=== PATIENT | male | born 1950 | race Caucasian/White ===

== ENCOUNTER 2024-06-29 16:58 | Emergency (ER) | payer OTHER ==
[2024-06-29 18:03] LABS: Absolute Basophils 0.1 K/uL (0-0.5); Absolute Eosinophils 0.2 K/uL (0-0.5); Absolute Lymphocytes (CBC) 1.7 K/uL (0.7-4.9); Absolute Monocytes 1.2 K/uL (0.1-1.3); Absolute Neutrophil 4.7 K/uL (1.8-8.0); Basophils % 1.2 % (0-1.3); Eosinophils % 3.1 % (0-4.4); Hematocrit 44.6 % (39.6-49.0); Hemoglobin 14.9 g/dL (13.6-17.9); Lymphocytes % 21.5 % (15.3-44.8); MCH 30.3 pg (27.0-35.0); MCHC 33.5 g/dL (32.0-36.0); MCV 90.5 fL (80-100); MPV 9.6 fL (7.6-11.3); Monocytes % 15.2 % (3.3-12.3); Nucleated Red Blood Cells % 0.1 % (0-0); Platelets 191 thou/uL (152-406); RBC Red Blood Cell Count 4.93 M/uL (4.33-5.43); Red Cell Distribution Width 15.4 % (12.1-15.2)
[2024-06-29 18:08] LABS: PT Prothrombin Time 11.1 SECONDS (10.0-13.0); Protime INR 0.97
--- NOTE | 2024-06-29 18:19 | RAD REPORT ---
EXAM: Chest Single View HISTORY: 73 years Male CHEST PAIN COMPARISON: None. FINDINGS: LUNGS/PLEURA: The lungs are clear. No pleural effusions or pneumothorax. No pulmonary edema. CARDIAC/MEDIASTINUM: The cardiac silhouette is within normal limits. UPPER ABDOMEN: No significant abnormality. BONES: No acute abnormality. LINES/TUBES/OTHER: N/A IMPRESSION: No evidence of acute cardiopulmonary disease.
[2024-06-29 18:22] LABS: ALT/SGPT 25 U/L (16-61); AST/SGOT 25 U/L (15-37); Albumin 3.6 g/dL (3.4-5.0); Alkaline Phosphatase 60 U/L (45-117); Anion Gap 11.9 mEq/L (5.0-15.0); BUN Blood Urea Nitrogen 24 mg/dL (7-18); Bicarbonate 25 mEq/L (21-32); Bilirubin Total 0.4 mg/dL (0.2-1.0); Globulin 3.7 g/dL (2.3-3.5); Glomerular Filtration Rate 73 ml/min (=/>90); Glucose Level 118 mg/dL (74-106); NT PRO-BNP 214 pg/mL (<125); Potassium 3.9 mEq/L (3.5-5.1); Protein, Total 7.3 g/dL (6.4-8.2); Sodium Level 138 mEq/L (136-145); Troponin High Sensitivity 10.3 pg/mL (<58.9)
[2024-06-29 18:24] LABS: Bilirubin Direct < 0.2 mg/dL (0-0.2); Bilirubin Indirect, Calculated 0.2 mg/dL (0.2-0.8)
[2024-06-29] MEDS ORDERED: ASPIRIN 81 MG CHEWABLE TABLET ONE (18:58)
[2024-06-29] MEDS ORDERED: cloNIDine HCL 0.1 MG TAB ONE ×2 (19:17→21:30)
[2024-06-29] MEDS ORDERED: ACETAMINOPHEN 500 MG TAB ONE (20:02)
[2024-06-29] MEDS ORDERED: HYDRALAZINE HCL 20 MG/ML VIAL ONE (20:38)
--- NOTE | 2024-06-29 21:11 | ER ---
Nurse's Notes [facility] Name: Everett Harrell Age: 73 yrs Sex: Male : 1950 Arrival Date: 06/29/2024 Time: 16:58 Bed 16 Private MD: Diagnosis: Essential (primary) hypertension Presentation: 06/29 17:13 Chief complaint: Patient states: he has been having high blood pressure when he wakes ap3 up that he can typically get down with a walk and beat juice, and a shower. However today it didn't come down. patient also complains of chest discomfort. Coronavirus screen: At this time, the client does not indicate any symptoms associated with coronavirus-19. Ebola Screen: No symptoms or risks identified at this time. Initial Sepsis Screen: Does the patient meet any 2 criteria? No. Patient's initial sepsis screen is negative. Does the patient have a suspected source of infection? No. Patient's initial sepsis screen is negative. Risk Assessment: Do you want to hurt yourself or someone else? Patient reports no desire to harm self or others. Onset of symptoms was June 08, 2024. 17:13 Method Of Arrival: Ambulatory ap3 17:13 Acuity: SAMMI 2 ap3 Triage Assessment: 17:16 Headache History: The patient has had previous headaches. General: Appears in no ap3 apparent distress. Behavior is calm, cooperative, appropriate for age. Pain: Complains of pain in chest Pain currently is 5 out of 10 on a pain scale. Pain began gradually, Also complains of nausea. Neuro: Level of Consciousness is awake, alert, obeys commands, Oriented to person, place, time, situation, Appropriate for age Reports headache. Cardiovascular: Patient's skin is warm and dry. Respiratory: Airway is patent Respiratory effort is even, unlabored, Respiratory pattern is regular, symmetrical. Historical: - Allergies: 17:15 No Known Allergies; ap3 - PMHx: 17:15 Hypertensive disorder; Hypothyroidism; ap3 17:15 throat cancer 2016; ap3 - Immunization history:: Adult Immunizations up to date. - Infectious Disease History:: Denies. - Social history:: Smoking status: Patient denies any tobacco usage or history of. Screenin:16 Abuse screen: Denies threats or abuse. Nutritional screening: No deficits noted. ap3 Tuberculosis screening: No symptoms or risk factors identified. 19:00 [facility] ED Fall Risk Assessment (Adult) History of falling in the last 3 months, rg5 including since admission No falls in past 3 months (0 pts) Confusion or Disorientation No (0 pts) Intoxicated or Sedated No (0 pts) Impaired Gait No (0 pts) Mobility Assist Device Used No (0 pt) Altered Elimination No (0 pt) Score/Fall Risk Level 0 - 2 = Low Risk Oriented to surroundings, Maintained a safe environment, Hourly rounding (assess needs \T\ fall precautionary measures) done. Assessment: 18:11 Reassessment: No changes from previously documented assessment. Patient and/or family hb updated on plan of care and expected duration. Pain level reassessed. 19:00 General: Appears in no apparent distress. comfortable, Behavior is calm, cooperative, rg5 appropriate for age. 19:00 Pain: Complains of pain in head. Neuro: Level of Consciousness is awake, alert, obeys rg5 commands, Oriented to person, place, time. Cardiovascular: Patient's skin is warm and dry. Respiratory: Airway is patent Trachea midline Respiratory effort is even, unlabored, Respiratory pattern is regular, symmetrical. GI: No signs and/or symptoms were reported involving the gastrointestinal system. : No signs and/or symptoms were reported regarding the genitourinary system. EENT: No deficits noted. Derm: Skin is intact, Skin is dry, Skin is normal. Musculoskeletal: Circulation, motion, and sensation intact. Range of motion: intact in all extremities. Vital Signs: 17:13 BP 214 / 112; Pulse 77; Resp 18; Temp 98.7; Pulse Ox 100% ; Weight 104.33 kg; Height 5 ap3 ft. 9 in. ; Pain 5/10; 18:10 BP 178 / 103; Pulse 66; hb 18:55 BP 145 / 89; Pulse 62; Resp 15; Pulse Ox 98% ; cm10 19:10 BP 175 / 97; Pulse 59; Resp 18; Pulse Ox 96% on R/A; Pain 6/10; rg5 20:05 BP 177 / 89; Pulse 59; Resp 17; Pulse Ox 98% on R/A; Pain 6/10; rg5 20:57 BP 136 / 89; Pulse 65; Resp 18; Pulse Ox 97% on R/A; Pain 3/10; rg5 17:13 Body Mass Index 33.96 (104.33 kg, 175.26 cm) ap3 17:13 Pain Scale: Adult ap3 19:10 Pain Scale: Adult rg5 20:05 Pain Scale: Adult rg5 20:57 Pain Scale: Adult rg5 ED Course: 16:59 Patient arrived in ED. im 17:02 Jammie Salazar PA-C is PHCP. sb4 17:02 Leo Richardson MD is Attending Physician. sb4 17:09 EKG done, by ED staff, reviewed by Jammie Salazar PA-C. ap3 17:15 Triage completed. ap3 17:17 Arm band placed on right wrist. ap3 17:57 Initial lab(s) drawn, by me, sent to lab. Missed attempt(s): 22 gauge in right hb antecubital area. Bleeding controlled, band aid applied, catheter tip intact. 18:10 Patient placed in an exam room, on a stretcher. hb 18:12 XRAY Chest (1 view) In Process Unspecified. EDMS 19:00 No provider procedures requiring assistance completed. Inserted saline lock: 20 gauge rg5 in left antecubital area, using aseptic technique. Blood collected. Flushed with 10 mL NS. 19:00 Patient has correct armband on for positive identification. Bed in low position. Call rg5 light in reach. Side rails up X 1. Provided Education on:. Door closed. Noise minimized. Warm blanket given. Verbal reassurance given. 19:12 Ralph Dobbs RN is Primary Nurse. rg5 21:11 Wong Barry MD is Referral Physician. sb4 21:30 IV discontinued, bleeding controlled, No redness/swelling at site. Pressure dressing rg5 applied. Administered Medications: 19:07 Drug: Aspirin PO Chewable Tablet 324 mg PO once; 81 mg tablets x 4 Route: PO; cm10 21:11 Follow up: Response: No adverse reaction rg5 19:21 Drug: cloNIDine PO 0.1 mg PO once Route: PO; rg5 21:10 Follow up: Response: No adverse reaction; Temperature is decreased rg5 20:09 Drug: Acetaminophen PO 1000 mg PO once Route: PO; rg5 21:10 Follow up: Response: No adverse reaction; Pain is decreased rg5 20:40 Drug: hydrALAZINE IVP 5 mg IVP once Route: IVP; Site: left antecubital; rg5 21:11 Follow up: Response: Blood pressure is lowered rg5 21:15 Drug: cloNIDine PO 0.1 mg PO once Route: PO; rg5 21:32 Follow up: Response: No adverse reaction; Blood pressure is lowered rg5 Medication: 19:00 VIS not applicable for this client. rg5 Outcome: 21:11 Discharge ordered by . sb4 21:25 Discharged to home ambulatory, rg5 21:25 Condition: stable 21:25 Instructed on discharge instructions, Demonstrated understanding of instructions, follow-up care, medications, Prescriptions given X 1, 21:33 Patient left the ED. rg5 Signatures: Dispatcher [employer] EDMS Zoe Wang RN RN Savita Maravilla RN RN [id number] Jammie Salazar PA-C PABogdan sb4 Candi Caballero Clarissa RN RN cm10 Ralph Dobbs RN RN rg5
--- NOTE | 2024-06-29 21:11 | EDPHYS ---
Physician Documentation [facility] Name: Everett Harrell Age: 73 yrs Sex: Male : 1950 Arrival Date: 06/29/2024 Time: 16:58 Bed 16 Private MD: ED Physician Leo Richardson HPI: 06/29 17:22 This 73 yrs old Male presents to ER via Ambulatory with complaints of High Blood sb4 Pressure, Headache, Chest Pressure. 17:22 Patient states that he was diagnosed with high blood pressure at the OR about 3 weeks sb4 ago. States that he was prescribed lisinopril 10 mg daily. He was taking as prescribed for a few days but his blood pressure was rising and dropping erratically. They changed it to 5 mg twice a day instead and he states that that also did not improve his erratic blood pressure readings. States that today it jumped up to 220 systolic and he started to feel headache and some chest discomfort so he came to the ED. He denies any cardiac history. Historical: - Allergies: 17:15 No Known Allergies; ap3 - PMHx: 17:15 Hypertensive disorder; Hypothyroidism; ap3 17:15 throat cancer 2016; ap3 - Immunization history:: Adult Immunizations up to date. - Infectious Disease History:: Denies. - Social history:: Smoking status: Patient denies any tobacco usage or history of. ROS: 17:22 Constitutional: Negative for fever, chills, and weight loss, sb4 17:22 Cardiovascular: Positive for Chest discomfort, 17:22 Neuro: Positive for headache, 17:22 All other systems are negative, Exam: 17:22 Head/Face: Normocephalic, atraumatic. Eyes: Extra-ocular motions intact. Periorbital sb4 areas with no swelling, redness, or edema. ENT: Mucous membranes moist. Cardiovascular: Regular rate and rhythm with a normal S1 and S2. Respiratory: No increased work of breathing, no retractions or nasal flaring. Abdomen/GI: Soft, non-tender, no distension. MS/ Extremity: Pulses equal, no cyanosis. Neurovascular intact. Full, normal range of motion. Neuro: Awake and alert, GCS 15, oriented to person, place, time, and situation. Motor strength 5/5 in all extremities. Sensory grossly intact. 17:22 Constitutional: The patient appears in no acute distress, alert, awake, 17:22 Skin: Appearance: flushing, noted on the face, Vital Signs: 17:13 BP 214 / 112; Pulse 77; Resp 18; Temp 98.7; Pulse Ox 100% ; Weight 104.33 kg; Height 5 ap3 ft. 9 in. ; Pain 5/10; 18:10 BP 178 / 103; Pulse 66; hb 18:55 BP 145 / 89; Pulse 62; Resp 15; Pulse Ox 98% ; cm10 19:10 BP 175 / 97; Pulse 59; Resp 18; Pulse Ox 96% on R/A; Pain 6/10; rg5 20:05 BP 177 / 89; Pulse 59; Resp 17; Pulse Ox 98% on R/A; Pain 6/10; rg5 20:57 BP 136 / 89; Pulse 65; Resp 18; Pulse Ox 97% on R/A; Pain 3/10; rg5 17:13 Body Mass Index 33.96 (104.33 kg, 175.26 cm) ap3 17:13 Pain Scale: Adult ap3 19:10 Pain Scale: Adult rg5 20:05 Pain Scale: Adult rg5 20:57 Pain Scale: Adult rg5 MDM: 17:04 Medical Screening Exam initiated sb4 18:43 Data interpreted: electronic device monitor: rate is 66 beats/min, rhythm is normal sinus rhythm. sb4 Data reviewed: vital signs, nurses notes, lab test result(s), EKG, radiologic studies. Consideration of Admission/Observation Escalation of care including admission/observation considered. Historians other than the Patient: Spouse/Significant Other: . Scoring Tools HEART Score: History: ECG: Age: Risk Factors: 1 or 2 risk factors (1), Troponin: Total Score = 3. Counseling: I had a detailed discussion with the patient and/or guardian regarding the historical points, exam findings, and any diagnostic results supporting the discharge/admit diagnosis, the presence of at least one elevated blood pressure reading (>120/80) during this emergency department visit, lab results, radiology results, the need for outpatient follow up, a snag grinder, to return to the emergency department if symptoms worsen or persist or if there are any questions or concerns that arise at home. 06/29 17:18 Order name: Basic Metabolic Panel; Complete Time: 18:28 sb4 06/29 17:18 Order name: CBC with Diff; Complete Time: 18:10 sb4 06/29 17:18 Order name: LFT's; Complete Time: 18:28 sb4 06/29 17:18 Order name: Magnesium; Complete Time: 18:28 sb4 06/29 17:18 Order name: NT PRO-BNP; Complete Time: 18:28 sb4 06/29 17:18 Order name: PT-INR; Complete Time: 18:10 sb4 06/29 17:18 Order name: Troponin HS; Complete Time: 18:28 sb4 06/29 19:41 Order name: Troponin High Sensitivity; Complete Time: 20:20 sb4 06/29 17:18 Order name: XRAY Chest (1 view); Complete Time: 18:20 sb4 06/29 17:18 Order name: Cardiac monitoring; Complete Time: 18:55 sb4 06/29 17:18 Order name: EKG - Nurse/Tech; Complete Time: 17:25 sb4 06/29 17:18 Order name: IV Saline Lock; Complete Time: 19:12 sb4 06/29 17:18 Order name: Labs collected and sent; Complete Time: 17:56 sb4 06/29 17:18 Order name: O2 Per Protocol; Complete Time: 18:55 sb4 06/29 17:18 Order name: O2 Sat Monitoring; Complete Time: 18:55 sb4 EC:10 Rate is 70 beats/min. Rhythm is regular, Normal Sinus Rhythm. CO interval is normal at sb4 200 msec. QRS interval is normal at 102 msec. QT interval is normal at 412 msec. No Q waves. T waves are Normal. No ST changes noted. Clinical impression: No evidence of ischemia. Interpreted by me. Reviewed by me. Administered Medications: 19:07 Drug: Aspirin PO Chewable Tablet 324 mg PO once; 81 mg tablets x 4 Route: PO; cm10 21:11 Follow up: Response: No adverse reaction rg5 19:21 Drug: cloNIDine PO 0.1 mg PO once Route: PO; rg5 21:10 Follow up: Response: No adverse reaction; Temperature is decreased rg5 20:09 Drug: Acetaminophen PO 1000 mg PO once Route: PO; rg5 21:10 Follow up: Response: No adverse reaction; Pain is decreased rg5 20:40 Drug: hydrALAZINE IVP 5 mg IVP once Route: IVP; Site: left antecubital; rg5 21:11 Follow up: Response: Blood pressure is lowered rg5 21:15 Drug: cloNIDine PO 0.1 mg PO once Route: PO; rg5 21:32 Follow up: Response: No adverse reaction; Blood pressure is lowered rg5 Disposition Summary: 06/29/24 21:11 Discharge Ordered Notes: Location: Home sb4 Problem: new sb4 Symptoms: have improved sb4 Condition: Stable sb4 Diagnosis - Essential (primary) hypertension sb4 Followup: sb4 - With: Wong Barry MD - When: As needed - Reason: Recheck today's complaints, Re-evaluation by your physician Discharge Instructions: - Discharge Summary Sheet sb4 - Hypertension, Adult sb4 Forms: - Medication Reconciliation Form sb4 - Antibiotic Education sb4 - Prescription Opioid Use sb4 - Patient Portal Instructions sb4 - Leadership Thank You Letter sb4 Prescriptions: - clonidine HCl 0.1 mg Oral tablet - take 1 tablet ORAL route every 1 to 2 hours as needed for hypertensive sb4 emergency; do not exceed 8 doses in a 24 hour period; 15 tablet; Refills: 0, Product Selection Permitted Signatures: Dispatcher [employer] EDMS Savita Maldonado RN RN ap3 Jammie Salazar PABogdan PA-C sb4 Angie Falcon, RN RN cm10 Ralph Dobbs, RN RN rg5 Corrections: (The following items were deleted from the chart) 17:19 17:19 Chest Single View+RAD.RAD.BRZ ordered. EDMS EDMS
[2024-06-29 21:53] VITALS: TEMP 98.7
[2024-06-29 22:13] VITALS: BP 136/89; O2SAT 97
--- NOTE | 2024-07-03 11:15 | EKG ---
Test Date: 2024-06-29 Test Time: 17:08:32 Mechanical Insulator: ALP MEASUREMENT RESULTS: Intervals: Rate: 70 IN: 200 QRSD: 102 QT: 412 QTc: 444 [place]: P: 55 IN: 200 QRS: -7 T: 38 INTERPRETIVE STATEMENTS: Normal sinus rhythm Voltage criteria for left ventricular hypertrophy Abnormal ECG No previous ECG available for comparison Electronically Signed On 07-03-24 11:03:58 CDT by Edgard Cagle
== END 2024-06-29 21:33 | disposition home or self-care (01) ==
LOC: ER 16:58
DX: I10 Essential (primary) hypertension (principal)
CPT/HCPCS: 93005; 85025; 80048; 36415; 83735; 85610; 80076; 84484 ×2; 83880; 71045; 96374; 99284; J0360

== ENCOUNTER 2024-07-02 11:50 | Emergency (ER) | payer OTHER ==
[2024-07-02] MEDS ORDERED: NA CHLORIDE 0.9% 500 ML ONE (12:46)
[2024-07-02 12:53] LABS: Absolute Basophils 0.1 K/uL (0-0.5); Absolute Eosinophils 0.2 K/uL (0-0.5); Absolute Lymphocytes (CBC) 1.5 K/uL (0.7-4.9); Absolute Monocytes 0.9 K/uL (0.1-1.3); Basophils % 1.1 % (0-1.3); Eosinophils % 2.7 % (0-4.4); Hematocrit 43.5 % (39.6-49.0); Hemoglobin 14.6 g/dL (13.6-17.9); Lymphocytes % 17.7 % (15.3-44.8); MCH 30.3 pg (27.0-35.0); MCHC 33.5 g/dL (32.0-36.0); MCV 90.6 fL (80-100); MPV 10.3 fL (7.6-11.3); Monocytes % 10.2 % (3.3-12.3); Neutrophils % 68.3 % (41.7-73.7); Nucleated Red Blood Cells % 0.3 % (0-0); Platelets 213 thou/uL (152-406); Red Cell Distribution Width 15.5 % (12.1-15.2)
[2024-07-02 13:02] LABS: PT Prothrombin Time 11.1 SECONDS (10-13.0); Protime INR 0.97
[2024-07-02 13:10] LABS: Albumin 3.4 g/dL (3.4-5.0); Anion Gap 10.9 mEq/L (5.0-15.0); Bilirubin Direct 0.2 mg/dL (0-0.2); Bilirubin Indirect, Calculated 0.4 mg/dL (0.2-0.8); Bilirubin Total 0.6 mg/dL (0.2-1.0); Globulin 3.5 g/dL (2.3-3.5); Magnesium 2.1 mg/dL (1.6-2.4); Potassium 3.9 mEq/L (3.5-5.1); Protein, Total 6.9 g/dL (6.4-8.2); Troponin High Sensitivity 7.5 pg/mL (<58.9)
[2024-07-02 13:40] LABS: Specific Gravity 1.005 (1.005-1.030); Sqamous Epithelial None Seen /HPF (None Seen); Urine Bacteria <20 /HPF (<20); Urine Bilirubin NEGATIVE (Negative); Urine Blood Negative (Negative); Urine Clarity Clear (Clear); Urine Color Colorless (Yellow); Urine Culture Reflex Order NOT NEEDED; Urine Glucose NEGATIVE (Negative); Urine Ketones NEGATIVE (Negative); Urine Micro Reflex YN NO BILL MICROSCOPIC; Urine Nitrite NEGATIVE (Negative); Urine Protein NEGATIVE (Negative); Urine RBC <5 /HPF (None Seen); Urine Urobilinogen Normal (Normal); Urine WBC <5 /HPF (<5); Urine pH 6.5 (5.0-7.0)
--- NOTE | 2024-07-02 13:46 | RAD REPORT ---
Procedure: Chest Single View HISTORY: Bradycardia and weakness COMPARISON: June 29, 2024 FINDINGS: The lungs appear clear of acute infiltrate. No significant pleural effusion noted. The heart is normal size. IMPRESSION: No acute abnormality is displayed.
--- NOTE | 2024-07-02 15:22 | EDPHYS ---
Physician Documentation [facility] Name: Everett Harrell Age: 73 yrs Sex: Male : 1950 Arrival Date: 07/02/2024 Time: 11:50 Bed 2 Private MD: ED Physician Jey Mcclelland HPI: 07/02 12:35 This 73 yrs old Male presents to ER via Wheelchair with complaints of Low heart rate. cp 12:35 Patient is a 73 y/o male who was sent to ED from local NH clinic for reported low HR in cp the 40s. Patient reports recent diagnosis of htn. Took prescribed clonidine medication for elevated blood pressure and after taking second dose of 0.1 mg clonidine, blood pressure became low and patient went to NH clinic. At [facility], HR was found to be in 40's. Patient c/o general weakness. Historical: - Allergies: 12:26 No Known Allergies; hb - PMHx: 12:26 Hypertensive disorder; Hypothyroidism; throat cancer 2016; hb - Immunization history:: Adult Immunizations up to date. - Infectious Disease History:: Denies. - Social history:: Smoking status: Patient denies any tobacco usage or history of. ROS: 12:40 Constitutional: Negative for body aches, chills, fever, poor PO intake, cp 12:40 Eyes: Positive for redness, of the outer aspect of conjuctiva of left eye, Negative for cp discharge, pain, injury, 12:40 ENT: Negative for drainage from ear(s), ear pain, sore throat, difficulty swallowing, difficulty handling secretions, 12:40 Cardiovascular: Negative for chest pain, edema, 12:40 Respiratory: Negative for cough, shortness of breath, wheezing, 12:40 Abdomen/GI: Negative for abdominal pain, vomiting, diarrhea, constipation, 12:40 : Negative for urinary symptoms, testicular pain 12:40 Neuro: Positive for near syncope, weakness, Negative for altered mental status, headache, syncope, 12:40 All other systems are negative, Exam: 12:45 Constitutional: The patient appears in no acute distress, alert, awake, cp non-diaphoretic, non-toxic, well developed, well nourished, 12:45 Head/Face: Normocephalic, atraumatic. cp 12:45 Eyes: Periorbital structures: appear normal, Pupils: equal, round, and reactive to light and accomodation, Extraocular movements: intact throughout, Conjunctiva: subconjunctival hemorrhage(s), seen in the left eye, lateral aspect, Lids and lashes: appear normal, bilaterally, 12:45 ENT: External ear(s): are unremarkable, Nose: is normal, Mouth: Lips: moist, Oral mucosa: moist, Posterior pharynx: Airway: no evidence of obstruction, patent, 12:45 Neck: ROM/movement: is normal, is supple, without pain, no range of motions limitations, 12:45 Chest/axilla: Inspection: normal, Palpation: is normal, no crepitus, no tenderness, 12:45 Cardiovascular: Rate: bradycardic, Rhythm: regular, Edema: is not appreciated, JVD: is not appreciated, 12:45 Respiratory: the patient does not display signs of respiratory distress, Respirations: normal, no use of accessory muscles, no retractions, labored breathing, is not present, Breath sounds: are clear throughout, no decreased breath sounds, no stridor, no wheezing, 12:45 Abdomen/GI: Inspection: abdomen appears normal, Palpation: abdomen is soft and non-tender, in all quadrants, 12:45 Back: pain, is absent, ROM is normal, 12:45 Skin: no rash present. 12:45 Neuro: Orientation: to person, place \T\ time. Mentation: is normal, Motor: moves all fours, strength is normal, Sensation: is normal, Vital Signs: 12:23 BP 102 / 59; Pulse 42; Resp 20; Temp 97.8; Pulse Ox 100% on R/A; Pain 0/10; hb 13:32 BP 131 / 76; Pulse 43; Resp 18; Pulse Ox 100% ; ll1 14:00 BP 139 / 72; Pulse 46; Resp 18; Pulse Ox 98% ; me1 15:09 BP 175 / 77; Pulse 48; Resp 14; Pulse Ox 99% on R/A; ss 15:55 BP 196 / 93; Pulse 52; ss 16:01 BP 177 / 74; Pulse 55; Resp 17; ss 17:10 BP 149 / 81; Pulse 69; Resp 18; Pulse Ox 100% on R/A; ss 17:39 BP 135 / 72; Pulse 72; Resp 18; Pulse Ox 100% on R/A; ll1 18:18 BP 112 / 68; Pulse 73; Resp 18; Pulse Ox 96% on R/A; ll1 12:23 Pain Scale: Adult hb MDM: 12:16 Medical Screening Exam initiated 15:25 Data reviewed: vital signs, nurses notes, lab test result(s), EKG, radiologic studies, cp plain films. 15:25 I considered the following discharge prescriptions or medication management in the emergency department Medications were administered in the Emergency Department. See MAR. Care significantly affected by the following chronic conditions: Hypertension. Counseling: I had a detailed discussion with the patient and/or guardian regarding the historical points, exam findings, and any diagnostic results supporting the discharge/admit diagnosis, lab results, radiology results, the need to transfer to another facility, request by patient for NH services. Response to treatment: the patient's symptoms have markedly improved after treatment. 07/02 12:31 Order name: Basic Metabolic Panel; Complete Time: 13:37 07/02 13:37 Interpretation: Normal except: NA 134; GLUC 114; BUN 19; GFR 86. 07/02 12:31 Order name: CBC with Diff; Complete Time: 13:37 cp 07/02 13:37 Interpretation: Normal except: RDW 15.5. cp 07/02 12:31 Order name: LFT's; Complete Time: 13:37 cp 07/02 12:31 Order name: Magnesium; Complete Time: 13:37 cp 07/02 12:31 Order name: NT PRO-BNP; Complete Time: 13:37 cp 07/02 12:31 Order name: PT-INR; Complete Time: 13:37 cp 07/02 12:31 Order name: Troponin HS; Complete Time: 13:37 cp 07/02 12:31 Order name: Urinalysis W/Microscopic; Complete Time: 14:25 cp 07/02 12:31 Order name: XRAY Chest (1 view); Complete Time: 14:25 cp 07/02 12:31 Order name: Cardiac monitoring; Complete Time: 13:10 cp 07/02 12:31 Order name: EKG - Nurse/Tech; Complete Time: 13:10 cp 07/02 12:31 Order name: IV Saline Lock; Complete Time: 12:42 cp 07/02 12:31 Order name: Labs collected and sent; Complete Time: 12:42 cp 07/02 12:31 Order name: O2 Per Protocol; Complete Time: 12:35 cp 07/02 12:31 Order name: O2 Sat Monitoring; Complete Time: 12:35 cp Administered Medications: 13:10 Drug: NS 0.9% IV 500 ml 500 ml IV at 1 bolus once; to be given as a bolus over 60 ll1 minutes Volume: 500 ml; Route: IV; Rate: 1 bolus; Site: left antecubital; 16:52 Follow up: Response: No adverse reaction; IV Status: Completed infusion; IV Intake: ss 500ml 16:00 Drug: hydrALAZINE IVP 10 mg IVP once Route: IVP; Site: left antecubital; ss 16:52 Follow up: Response: No adverse reaction ss 16:37 Drug: diphenhydrAMINE IVP 50 mg IVP once Route: IVP; Site: left antecubital; ss 17:02 Follow up: Response: No adverse reaction ss 16:37 Drug: MethylPrednisoLONE IVP 125 mg IVP once Route: IVP; Site: left antecubital; ss 17:02 Follow up: Response: No adverse reaction ss 16:52 Drug: DuoNeb Nebulize (2.5 mg - 0.5 mg) 3 ml Nebulizer once Route: Nebulizer; ss 17:02 Follow up: Response: No adverse reaction ss 16:52 Drug: Famotidine IVP 20 mg IVP once; dilute with 10 mL 0.9% NaCl; give over 2 minutes ss Route: IVP; Site: left antecubital; 17:02 Follow up: Response: No adverse reaction ss Disposition: 07/03 15:45 Chart complete. cp 16:28 Co-signature as Attending Physician, Jey Mcclelland MD I reviewed the patient's care rn provided by the Advanced Practice Provider and agree with the diagnosis and treatment plan. Disposition Summary: 07/02/24 15:22 Transfer Ordered Notes: Transfer Location: [facility] cp Reason: Higher level of care cp Condition: Stable cp Problem: new cp Symptoms: have improved cp Accepting Physician: doctor(07/02/24 18:49) ll1 Diagnosis - Bradycardia, unspecified cp Forms: - Medication Reconciliation Form cp - SBAR form cp Signatures: Dispatcher [employer] EDJey Levine MD MD rn Blanchard, Shelby, RN RN Leo Mcguire PA PA Zoe Muhammad RN RN Senthil Maldonado RN RN ll1 Corrections: (The following items were deleted from the chart) 07/02 12:32 12:32 BASIC METABOLIC PANEL+C.LAB.BRZ ordered. EDMS EDMS 12:32 12:32 CBC+H.LAB.BRZ ordered. EDMS EDMS 12:32 12:32 HEPATIC FUNCTION+C.LAB.BRZ ordered. EDMS EDMS 12:32 12:32 MAGNESIUM+C.LAB.BRZ ordered. EDMS EDMS 12:32 12:32 PROBNP+C.LAB.BRZ ordered. EDMS EDMS 12:32 12:32 PROTIME (+INR)+COAG.LAB.BRZ ordered. EDMS EDMS 12:32 12:32 Troponin High Sensitivity+C.LAB.BRZ ordered. EDMS EDMS 12:32 12:32 Urinalysis W/Microscopic+U.LAB.BRZ ordered. EDMS EDMS 12:32 12:32 Chest Single View+RAD.RAD.BRZ ordered. EDMS EDMS 18:49 15:22 doctor cp ll1
--- NOTE | 2024-07-02 15:22 | ER ---
Nurse's Notes [facility] Name: Everett Harrell Age: 73 yrs Sex: Male : 1950 Arrival Date: 07/02/2024 Time: 11:50 Bed 2 Private MD: Diagnosis: Bradycardia, unspecified Presentation: 07/02 12:23 Chief complaint: Sent from [place] clinic for HR 40s, c/o dizziness and generalized hb weakness. Coronavirus screen: At this time, the client does not indicate any symptoms associated with coronavirus-19. Ebola Screen: No symptoms or risks identified at this time. Initial Sepsis Screen: Does the patient meet any 2 criteria? No. Patient's initial sepsis screen is negative. Does the patient have a suspected source of infection? No. Patient's initial sepsis screen is negative. Risk Assessment: Do you want to hurt yourself or someone else? Patient reports no desire to harm self or others. Onset of symptoms was July 02, 2024. 12:23 Method Of Arrival: Wheelchair hb 12:27 Acuity: SAMMI 2 hb Historical: - Allergies: 12:26 No Known Allergies; hb - PMHx: 12:26 Hypertensive disorder; Hypothyroidism; throat cancer 2016; hb - Immunization history:: Adult Immunizations up to date. - Infectious Disease History:: Denies. - Social history:: Smoking status: Patient denies any tobacco usage or history of. Screenin:33 [facility] ED Fall Risk Assessment (Adult) History of falling in the last 3 months, ll1 including since admission No falls in past 3 months (0 pts) Confusion or Disorientation No (0 pts) Intoxicated or Sedated No (0 pts) Impaired Gait Yes (1 pt) Mobility Assist Device Used Yes (1 pt) Altered Elimination Yes (1 pt) Score/Fall Risk Level 3 or more points = High Risk Maintained a safe environment, Hourly rounding (assess needs \T\ fall precautionary measures) done. Abuse screen: Denies threats or abuse. Nutritional screening: No deficits noted. Tuberculosis screening: No symptoms or risk factors identified. Assessment: 12:55 General: Appears in no apparent distress. Behavior is calm, cooperative, appropriate ll1 for age, Reports fatigue for. Pain: Denies pain. Neuro: Reports weakness BP fluctuations and HR fluctuations.. 13:30 Reassessment: No changes from previously documented assessment. Patient and/or family ss updated on plan of care and expected duration. Pain level reassessed. 15:09 Reassessment: No changes from previously documented assessment. Cory TOLENTINO at . ss 17:55 Reassessment: No changes from previously documented assessment. Patient and/or family ll1 updated on plan of care and expected duration. Pain level reassessed. Patient is alert, oriented x 3, equal unlabored respirations, skin warm/dry/pink. Vital Signs: 12:23 BP 102 / 59; Pulse 42; Resp 20; Temp 97.8; Pulse Ox 100% on R/A; Pain 0/10; hb 13:32 BP 131 / 76; Pulse 43; Resp 18; Pulse Ox 100% ; ll1 14:00 BP 139 / 72; Pulse 46; Resp 18; Pulse Ox 98% ; me1 15:09 BP 175 / 77; Pulse 48; Resp 14; Pulse Ox 99% on R/A; ss 15:55 BP 196 / 93; Pulse 52; ss 16:01 BP 177 / 74; Pulse 55; Resp 17; ss 17:10 BP 149 / 81; Pulse 69; Resp 18; Pulse Ox 100% on R/A; ss 17:39 BP 135 / 72; Pulse 72; Resp 18; Pulse Ox 100% on R/A; ll1 18:18 BP 112 / 68; Pulse 73; Resp 18; Pulse Ox 96% on R/A; ll1 12:23 Pain Scale: Adult hb ED Course: 11:52 Patient arrived in ED. mr 11:53 Leo Kowalski PA is PHCP. cp 11:53 Jey Mcclelland MD is Attending Physician. cp 12:27 Triage completed. hb 12:27 Arm band placed on. hb 12:55 Provided Education on: ER procedures and process. Client placed on continuous cardiac ll1 and pulse oximetry monitoring. NIBP monitoring applied. vocational rehabilitation supervisor on. 12:55 Initial lab(s) drawn, by me, sent to lab. ll1 13:01 Senthil Maldonado, MICAELA is Primary Nurse. ll1 13:11 Missed attempt(s): 22 gauge in right antecubital area. Bleeding controlled, band aid ll1 applied, catheter tip intact. 13:13 Inserted saline lock: 22 gauge in left forearm, using aseptic technique. Flushed with zm 10 mL NS. 13:15 XRAY Chest (1 view) In Process Unspecified. EDMS 13:32 Urinalysis W/Microscopic Sent. ll1 13:33 Patient has correct armband on for positive identification. Bed in low position. ll1 15:23 initiated transfer to [facility], faxed chart to [place] ER as requested by transfer center.bd 17:50 No provider procedures requiring assistance completed. Patient transferred, IV remains ll1 in place. Administered Medications: 13:10 Drug: NS 0.9% IV 500 ml 500 ml IV at 1 bolus once; to be given as a bolus over 60 ll1 minutes Volume: 500 ml; Route: IV; Rate: 1 bolus; Site: left antecubital; 16:52 Follow up: Response: No adverse reaction; IV Status: Completed infusion; IV Intake: ss 500ml 16:00 Drug: hydrALAZINE IVP 10 mg IVP once Route: IVP; Site: left antecubital; ss 16:52 Follow up: Response: No adverse reaction ss 16:37 Drug: diphenhydrAMINE IVP 50 mg IVP once Route: IVP; Site: left antecubital; ss 17:02 Follow up: Response: No adverse reaction ss 16:37 Drug: MethylPrednisoLONE IVP 125 mg IVP once Route: IVP; Site: left antecubital; ss 17:02 Follow up: Response: No adverse reaction ss 16:52 Drug: DuoNeb Nebulize (2.5 mg - 0.5 mg) 3 ml Nebulizer once Route: Nebulizer; ss 17:02 Follow up: Response: No adverse reaction ss 16:52 Drug: Famotidine IVP 20 mg IVP once; dilute with 10 mL 0.9% NaCl; give over 2 minutes ss Route: IVP; Site: left antecubital; 17:02 Follow up: Response: No adverse reaction ss Medication: 17:51 VIS not applicable for this client. ll1 Intake: 16:52 IV: 500ml; Total: 500ml. ss Outcome: 15:22 ER care complete, transfer ordered by . cp 17:50 Transferred by ground EMS to [facility] Transfer form completed. ll1 Note: report called to MICAELA Cruz at [facility] 17:50 Condition: stable 17:50 Instructed on the need for transfer, 18:49 Patient left the ED. ll1 Signatures: Dispatcher [employer] EDMS Karen Reilly Corona, Nicole, Reg Reg mr July Carreno, RN RN ss Leo Kowalski PA PA cp Baxter, Heather, RN RN hb Senthil Maldonado RN RN ll1 Sydnie Falcon Michelle, RN RN me1 Corrections: (The following items were deleted from the chart) 12:26 12:16 Chief complaint: hb hb
[2024-07-02] MEDS ORDERED: HYDRALAZINE HCL 20 MG/ML VIAL ONE (15:55)
[2024-07-02] MEDS ORDERED: DIPHENHYDRAMINE 50 MG/ML VIAL ONE (16:32)
[2024-07-02] MEDS ORDERED: METHYLPREDNISOLONE 125 MG INJ ONE (16:32)
[2024-07-02] MEDS ORDERED: IPRATROPIUM BROM 0.5MG/2.5ML ONE (16:42)
[2024-07-02] MEDS ORDERED: FAMOTIDINE 20 MG/2 ML VIAL IV ONE (16:42)
[2024-07-02] MEDS ORDERED: ALBUTEROL 2.5 MG/3 ML NEB SOL ONE (16:42)
[2024-07-02 19:37] VITALS: TEMP 97.8
[2024-07-02 19:55] VITALS: BP 112/68; O2SAT 96
--- NOTE | 2024-07-03 10:59 | EKG ---
Test Date: 2024-07-02 Test Time: 13:09:37 Clinical Care Coordinator: LML MEASUREMENT RESULTS: Intervals: Rate: 43 NJ: 216 QRSD: 96 QT: 496 QTc: 419 [place]: P: 52 NJ: 216 QRS: -11 T: 8 INTERPRETIVE STATEMENTS: Marked sinus bradycardia with 1st degree AV block Minimal voltage criteria for LVH, may be normal variant Cannot rule out Anterior infarct, age undetermined Abnormal ECG Compared to ECG 06/29/2024 17:08:32 First degree AV block now present Myocardial infarct finding now present Sinus rhythm no longer present Electronically Signed On 07-03-24 10:56:52 CDT by Edgard Cagle
== END 2024-07-02 18:49 ==
LOC: ER 11:50
DX: R00.1 Bradycardia, unspecified (principal); R53.1 Weakness; I10 Essential (primary) hypertension
CPT/HCPCS: 96361; 93005; 85025; 81001; 80048; 36415; 83735; 85610; 80076; 84484; 83880; 71045; 96375; 96374; 99285; J0360; J1200; J7613; J7644; J2919; J7040